=== PATIENT | male | born 1955 | race Caucasian/White ===

== ENCOUNTER 2020-12-09 10:49 | Outpatient (CLI) | payer OTHER, SELFPAY | END 2020-12-09 10:50 | disposition home or self-care (01) | LOC: ANHCOVIDVC 10:49 | PROVIDERS: PCP Family Medicine | DX: Z23 Encounter for immunization (principal) | CPT/HCPCS: 0001A; 91300 ==

== ENCOUNTER 2020-12-30 10:46 | Outpatient (CLI) | payer OTHER, SELFPAY | END 2020-12-30 10:47 | disposition home or self-care (01) | LOC: ANHCOVIDVC 10:46 | PROVIDERS: PCP Family Medicine | DX: Z23 Encounter for immunization (principal) | CPT/HCPCS: 0002A; 91300 ==